=== PATIENT | female | born 1965 | race Caucasian/White ===

== ENCOUNTER 2020-05-25 18:31 | Observation (INO) ==
[2020-05-25 18:45] VITALS: BMI 24.0
--- NOTE | 2020-05-25 19:04 | CT ---
HISTORYright side weaknessSTUDYBRAIN W/O CONCOMPARISONNoneTECHNIQUEMultiple axial images of the head were performed from the skull base to the vertex using standard departmental protocol. Sagittal and coronal reformatted images were performed. Dose reduction techniques including Automated Exposure Control (AEC) and adjustment of mA and kV were utilized.FINDINGSNo evidence of acute territorial infarct. No acute intracranial hemorrhage. No evidence of intracranial mass or midline shift. No hydrocephalus. No abnormal intra or extra-axial fluid collections. Chronic small vessel ischemic changes.The calvaria is intact. The bilateral mastoid air cells and visualized paranasal sinuses are well pneumatized. The bilateral orbits are unremarkable.IMPRESSIONNo acute intracranial findings.Electronically signed by: RIN PATEL (May 25, 2020 19:03:02)
--- NOTE | 2020-05-25 19:08 | DR.DIZZY ---
HPI Time seen Time Seen by Provider: 05/25/20 18:59 PCP Primary Care Physician: DONNIE COPELAND Complaint Chief Complaint:: [facility] WAS DISPATCHED TO PATIENT DUE TO RIGHT SIDE WEAKNESS POSSIBLE STROKE. [facility] STATED THAT ON ARRIVAL PATIENT WAS UNST DANIELE WHILE STANDING. PATIENT STATES THAT SHE WAS AT WORK AND SHE STARTED FEELING FUNNY THEN SHE GOT DIZZY, TOP OF HEAD STARTED HURTING AND WENT NUMB THEM HER LIPS, HER TEETH, HER ARM AND HANDS ALL THE WAY DOWN TO HER FEET ON HER RIGHT SIDE WAS NUMB. PATIENT SHOWS NO SIGNS OF WEAKNESS DURING TRIAGE. PATIENT ALERT AND ORIENTED DURING TRIAGE STATES THAT SHE FEELS BETTER NOW AND THAT THE NUMBNESS IS BETTER. COVID-19 Coronavirus risk:travel/contact w/high risk person: No Has patient experienced Coronavirus symptoms: No Source History Provided: Patient and EMS Mode of Arrival Mode of Arrival: EMS Timing Onset of Chief Complaint: 05/25/20 Came on: Gradually Symptom Onset: Known Location of Weakness Weakness Location: None Context History of: None Stroke Symptoms: Numbness of limbs Associated signs and symptoms Associated Signs and Symptoms: Vertigo, Imbalance and Numb PMH PMH Past Medical History: Yes Past Medical History: Hypertension Past Surgical History: Yes Surgical History: Cholecystectomy and Hysterectomy Family History History of Family Medical Conditions: Yes Family Medical History: Coronary Artery Disease and Hypertension Social History Alcohol Use: None Do you use any recreational Drugs:: No Travel Risk Coronavirus risk:travel/contact w/high risk person: No Has patient experienced Coronavirus symptoms: No Infectious screening Have you traveled outside the country in the last 6 months?: No Isolation: Standard ROS Review of Systems Constitutional: Other (not feeling right) Eyes: No Symptoms Reported ENTM: No Symptoms Reported Respiratoy: No Symptoms Reported Cardiovascular: No Symptoms Reported Gastrointestinal/Abdominal: No Symptoms Reported Genitourinary: No Symptoms Reported Neurological: Numbness (right head and arm, right leg heavy) Musculoskeletal: No Symptoms Reported Integumentary: No Symptoms Reported Hematologic/Lymphatic: No Symptoms Reported Endocrine: No Symptoms Reported Psychiatric: Anxiety All Other Systems: Reviewed and Negative PE Vital Signs Vitals: Temperature 98.1 F Pulse Rate 72 Respiratory Rate 18 Blood Pressure [Right Arm] 137/87 Blood Pressure 194/86 O2 Sat by Pulse Oximetry 96 General Limitations: No Limitations General Appearance: Alert, In No Apparent Distress and Anxious Head Head Exam: Normal Inspection, Atraumatic and Normocephalic Eyes Eye exam: Normal Appearance, PERRL and EOMI Pupils: Regular, Round: Bilateral Anterior Chamber: Normal Inspection: Bilateral Posterior Chamber: Deferred: Bilateral ENT ENT Exam: Normal Exam, Normal Oropharynx and Normal External Ear Exam Neck Neck Exam: Normal Inspection, Full ROM and Trachea Midline Chest Chest Inspection: Normal Inspection Respiratory Respiratory Exam: Normal Lung Sounds Bilat Respiratory Exam: Bilateral: Clear to Auscultation Cardiovascular Cardiovascular Exam: Regular Rate Abdominal Exam Abdominal Exam: Normal Inspection Rectal Rectal Exam: Deferred Extremeties Extremities Exam: Normal Inspection and Full ROM Back Back Exam: Normal Inspection Neurologic Neurological Exam: Alert, Oriented X3, CN II-XII Intact and Normal Gait Patient Oriented To: Person and Place Speech: Fluid Speech Cranial Nerve Exam: EOM Function (II, III, IV, ): Normal, Facial Sensation (V): Normal, Facial Palsy (VII): Normal, Gag reflex (XI): Normal, Spinal Accessory Function (XI): Normal and Tongue Deviation: Normal Cerebellar Function: Finger to Nose: Normal and Heel to [place]: Normal Motor Strength - LUE: 5/5 Motor Strength - RUE: 4/5 Motor Strength - LLE: 5/5 Motor Strength - RLE: 5/5 Upper Motor Neuron Exam: Marcelo Neglect: Normal, Pronator Drift: Normal and Sensory Extinction: Normal Psychiatric Psychiatric Exam: Anxious Skin Skin Exam: Normal Color; negative Rash COURSE Treatment Treatment: NIH score on arrival 1-2 possible sensation problem. 2010: Case discussed with Neuro materials planner/production planner at [facility], recommended BP control, antiplatelet Drug and observation. Consultation Called: 20:15 Call Returned: 20:18 Consultation Comments: Case discussed with DR. Abdi, observation neuro checks ROR Labs Reviewed Result Diagrams: 05/25/20 19:02 05/25/20 19:02 Laboratory: WBC 9.2 X10^3/uL (3.6-10.0) 05/25/20 19:02 RBC 4.46 X10^6/uL (3.5-5.4) 05/25/20 19:02 Hgb 12.5 g/dL (12.0-16.0) 05/25/20 19:02 Hct 37.8 % (36.0-47.0) 05/25/20 19:02 MCV 84.8 fL (80.0-100.0) 05/25/20 19:02 MCH 28.0 pg (27.0-34.0) 05/25/20 19:02 MCHC 33.0 g/dL (33.0-35.0) 05/25/20 19:02 RDW 13.5 % (11.6-16.5) 05/25/20 19:02 Plt Count 243 X10^3/uL (150.0-450.0) 05/25/20 19:02 MPV 8.8 fL (7.4-11.0) 05/25/20 19:02 Neut % (Auto) 53.2 % (42.0-75.0) 05/25/20 19:02 Lymph % (Auto) 36.3 % (21.0-51.0) 05/25/20 19:02 [place] % (Auto) 6.4 % (0.0-13.0) 05/25/20 19:02 Eos % (Auto) 1.0 % (0.9-2.9) 05/25/20 19:02 Baso % (Auto) 3.1 % (0.2-1.0) H 05/25/20 19:02 Neut # (Auto) 4.9 x10^3/uL (2.2-4.8) H 05/25/20 19:02 Lymph # (Auto) 3.3 X10^3/uL (1.3-2.9) H 05/25/20 19:02 [place] # (Auto) 0.6 x10^3/uL (0.3-0.8) 05/25/20 19:02 Eos # (Auto) 0.1 x10^3/uL (0.0-0.2) 05/25/20 19:02 Baso # (Auto) 0.3 X10^3/uL (0.0-0.1) H 05/25/20 19:02 Absolute Nucleated RBC 0.1 /100WBC 05/25/20 19:02 PT 12.1 SECONDS (11.8-14.3) 05/25/20 19:02 INR Target Range - 05/25/20 19: INR 0.92 (0.8-1.3) 05/25/20 19:02 APTT 22.8 SECONDS (22.9-36.5) L 05/25/20 19:02 PTT Comment - 05/25/20 19:02 Fibrinogen 272 mg/dL (239-489) 05/25/20 19:02 Sodium 137 mmol/L (136-145) 05/25/20 19:02 Corrected Sodium TNP 05/25/20 19:02 Potassium 3.0 mmol/L (3.5-5.1) L* 05/25/20 19:02 Chloride 101 mmol/L (98-107) 05/25/20 19:02 Carbon Dioxide 26.1 mmol/L (21-32) 05/25/20 19:02 BUN 12 mg/dL (7-18) 05/25/20 19:02 Creatinine 0.73 mg/dL (0.55-1.02) 05/25/20 19:02 Est GFR (MDRD) Af Amer > 60 (>60) 05/25/20 19:02 Est GFR (MDRD) Non-Af > 60 (>60) 05/25/20 19:02 Glucose 89 mg/dL (65-99) 05/25/20 19:02 Calcium 9.4 mg/dL (8.5-10.1) 05/25/20 19:02 Corrected Calcium TNP 05/25/20 19:02 Total Bilirubin 0.30 mg/dL (0.2-1.0) 05/25/20 19:02 AST 19 Units/L (15-37) 05/25/20 19:02 ALT 22 Units/L (12-78) 05/25/20 19:02 Alkaline Phosphatase 41 Units/L (46-116) L 05/25/20 19:02 Total Protein 7.1 g/dL (6.4-8.2) 05/25/20 19:02 Albumin 3.6 g/dL (3.4-5.0) 05/25/20 19:02 Globulin 3.5 g/dL (2.5-4.5) 05/25/20 19:02 Albumin/Globulin Ratio 1.0 Ratio (1.1-2.1) L 05/25/20 19:02 EKG Rate: 78 [place]: Normal Rhythm: NSR Block: None Hypertrophy: None ST: Nonsp Opioid Opioid Risk Tool Age (Obed box if 16-45): Yes Total: 1 Total Score Risk Category: Low Risk Copyright: Michael BISHOP predicting aberrant behaviors Instructions Forms: Excuse From Work Precautions for COVID19 Patient Portal Social Distancing
[2020-05-25] MEDS ORDERED: PLAVIX PO ONE (19:13)
[2020-05-25 19:15] LABS: BASOPHILS # (AUTO) 0.3 X10^3/uL (0.0-0.1); BASOPHILS % (AUTO) 3.1 % (0.2-1.0); EOSINOPHILS # (AUTO) 0.1 x10^3/uL (0.0-0.2); HEMATOCRIT 37.8 % (36.0-47.0); HEMOGLOBIN 12.5 g/dL (12.0-16.0); LYMPHOCYTES # (AUTO) 3.3 X10^3/uL (1.3-2.9); LYMPHOCYTES % (AUTO) 36.3 % (21.0-51.0); MEAN CORPUSCULAR VOLUME 84.8 fL (80.0-100.0); MEAN PLATELET VOLUME 8.8 fL (7.4-11.0); MONOCYTES # (AUTO) 0.6 x10^3/uL (0.3-0.8); MONOCYTES % (AUTO) 6.4 % (0.0-13.0); NEUTROPHILS # (AUTO) 4.9 x10^3/uL (2.2-4.8); NEUTROPHILS % (AUTO) 53.2 % (42.0-75.0); PLATELET COUNT 243 X10^3/uL (150.0-450.0); RED BLOOD COUNT 4.46 X10^6/uL (3.5-5.4); RED CELL DISTRIBUTION WIDTH 13.5 % (11.6-16.5); WHITE BLOOD COUNT 9.2 X10^3/uL (3.6-10.0)
[2020-05-25 19:18] LABS: BLOOD UREA NITROGEN 12 mg/dL (7-18); CALCIUM 9.4 mg/dL (8.5-10.1); CARBON DIOXIDE 26.1 mmol/L (21-32); CHLORIDE 101 mmol/L (98-107); CREATININE 0.73 mg/dL (0.55-1.02); SODIUM 137 mmol/L (136-145); eGFR NON BLACK RACES > 60 (>60)
[2020-05-25] MEDS ORDERED: PLAVIX ONE (19:18)
[2020-05-25 19:23] LABS: ALANINE AMINOTRANSFERASE 22 Units/L (12-78); ALBUMIN 3.6 g/dL (3.4-5.0); ALKALINE PHOSPHATASE 41 Units/L (46-116); ASPARTATE AMINO TRANSFERASE 19 Units/L (15-37); TOTAL PROTEIN 7.1 g/dL (6.4-8.2)
[2020-05-25] MEDS ORDERED: POTASSIUM CHLORIDE LIQ 20 MEQ UDC PO ONE (19:24)
[2020-05-25] MEDS ORDERED: POTASSIUM CHLORIDE LIQ 20 MEQ UDC ONE (19:30)
[2020-05-25] MEDS ORDERED: CATAPRES TAB 0.1 MG PO ONE (19:31)
[2020-05-25] MEDS ORDERED: CATAPRES TAB 0.1 MG ONE (19:47)
[2020-05-26 07:12] LABS: BASOPHILS % (AUTO) 0.7 % (0.2-1.0); EOSINOPHILS # (AUTO) 0.1 x10^3/uL (0.0-0.2); EOSINOPHILS % (AUTO) 1.1 % (0.9-2.9); HEMATOCRIT 34.1 % (36.0-47.0); HEMOGLOBIN 11.4 g/dL (12.0-16.0); LYMPHOCYTES # (AUTO) 3.2 X10^3/uL (1.3-2.9); LYMPHOCYTES % (AUTO) 49.3 % (21.0-51.0); MEAN CORPUSCULAR HEMOGLOBIN 28.4 pg (27.0-34.0); MEAN CORPUSCULAR HGB CONC 33.5 g/dL (33.0-35.0); MEAN CORPUSCULAR VOLUME 84.7 fL (80.0-100.0); MEAN PLATELET VOLUME 8.9 fL (7.4-11.0); MONOCYTES # (AUTO) 0.5 x10^3/uL (0.3-0.8); MONOCYTES % (AUTO) 7.9 % (0.0-13.0); NEUTROPHILS # (AUTO) 2.7 x10^3/uL (2.2-4.8); PLATELET COUNT 251 X10^3/uL (150.0-450.0); RED BLOOD COUNT 4.03 X10^6/uL (3.5-5.4); RED CELL DISTRIBUTION WIDTH 13.6 % (11.6-16.5); WHITE BLOOD COUNT 6.5 X10^3/uL (3.6-10.0)
[2020-05-26 07:24] LABS: ALANINE AMINOTRANSFERASE 20 Units/L (12-78); ALBUMIN 3.1 g/dL (3.4-5.0); ALKALINE PHOSPHATASE 38 Units/L (46-116); ASPARTATE AMINO TRANSFERASE 14 Units/L (15-37); BLOOD UREA NITROGEN 18 mg/dL (7-18); CALCIUM 9.1 mg/dL (8.5-10.1); CARBON DIOXIDE 26.8 mmol/L (21-32); CHLORIDE 105 mmol/L (98-107); COR CA(FOR HYPOALB) 9.8 mg/dL (8.5-10.1); CREATININE 0.61 mg/dL (0.55-1.02); SODIUM 140 mmol/L (136-145); TOTAL PROTEIN 6.3 g/dL (6.4-8.2); eGFR NON BLACK RACES > 60 (>60)
[2020-05-26] MEDS ORDERED: ANTIVERT TAB 25 MG PO PRN (09:58)
--- NOTE | 2020-05-26 10:11 | DR.H&P ---
H&P - History & Physical for Day of: H&P Date: 05/25/20 - Chief Complaint Chief Complaint: DIZZINESS, LEFT SIDE WEAKNESS - History of Present Illness History of Present Illness: PT IS 54 WF ER ADMISSION WITH NEW ONSET DIZZINESS WITH ACUTE RIGHT SIDE FACIAL NUMBNESS AND WEAKNESS AND NUMBNESS TO RIGHT ARM. PT HAS PMH OF HTN. PT DENIES ANY CHEST PAIN OR SOB. PT DOES REPORT SHE HAS TAKE ZITHROMAX FOR SINUS INFECTION THIS PAST WEEK. SHE TESTED COVID NEGATIVE 2 WEEKS AGO, RAPID SWAB NEGATIVE IN ER.PT ALSO REPORTS SHE HAS HX OF HEADACHES, NO DIAGNOSIS OF MIGRAINE DISORDER. PT ADMITTED FOR TREATMENT OF ACUTE ILLNESS R/O TIA - Past Medical History Past Medical History: Hypertension - Past Surgical History Surgical History: Appendectomy, Cholecystectomy, Hysterectomy, Tonsillectomy - Family History Family Medical History: Diabetes Mellitus, Cancer, Coronary Artery Disease, Hypertension - Social History Does patient currently use any type of tobacco product: No Have you used tobacco products in the last 12 months: No Type of Tobacco Use: None Does any household member use tobacco: No Alcohol Use: None Drug Use: None - Medications Home Medications: No Known Drug Allergies Allergy (Verified 12/21/18 05:53) - Review of Systems Constitutional: Weakness Eyes: No Symptoms Reported ENT: No Symptoms Reported Respiratory: No Symptoms Reported Cardiovascular: No Symptoms Reported Gastrointestinal: No Symptoms Reported Musculoskeletal: No Symptoms Reported Skin: No Symptoms Reported Neurological: Weakness, Numbness (EPISODE OF NUMBNESS TO RIGHT SIDE OF AND RIGHT HAND RESOLVED AT THIS TIME) - Physical Exam Vital Signs: Temperature 98.1 F Pulse Rate [Left] 62 Pulse Rate 72 Respiratory Rate 18 Blood Pressure [Right Arm] 138/63 Blood Pressure 194/86 O2 Sat by Pulse Oximetry 99 Oriented: Normal Eyes: Normal Ear: Normal Nose: Normal Throat: Normal Respiratory: Clear Throughout Cardiovascular: Normal : Normal Auscultation: Bowel Sounds: Normal Palpation: Normal Tenderness: Normal Skin: Normal Musculoskeletal: Tender (MILD CERVICAL SPINE MUSCLE TENDERNESS, FULL ROM) Psychiatric: Normal Mood Description: Calm Speech Pattern: Clear - Assessment/Plan (1) Hypokalemia Status: Acute Plan: ADMIT, CT HEAD ON ADMISSION R/O CVA. BP CONTROL, VERIFY HOME MEDICATION. POTASSIUM REPLACEMENT, CARDIAC MONITORING (2) Facial paresthesia Status: Acute (3) Sinusitis Status: Acute (4) Hypertension Status: Acute - Allergies Allergies/Adverse Reactions: Allergies Allergy/AdvReac Type Severity Reaction Status Date / Time No Known Drug Allergies Allergy Verified 12/21/18 05:53
--- NOTE | 2020-05-26 10:17 | PCM.PROG ---
Progress Note - Progress Note for Day of Date of Exam: 05/26/20 - Subjective Subjective: PT IS 54 WF ER ADMISSION WITH POSSIBLE TIA. PT HAD CT HEAD IN ER WITHOUT ACUTE FINDINGS. SINCE ADMISSION PT'S RIGHT SIDE FACIAL AND RIGHT HAND PARESTHESIAS HAVE RESOLVED. PT WAS HYPOKALEMIC WITH POTASSIUM UP TO 3.7 THIS AM. PT CONTINUES WITH WAVES OF DIZZINESS WITH CHANGING POSITION. PT ALSO CO NECK PAIN TO RIGHT SIDE WITH HX OF DDD TO CSPINE. PT DENIES ANY GARCIA OR VISION CHANGES THIS AM. PT WAS TAKING ZITHROMAX FOR A "SINUS INFECTION" PRIOR TO ADMISSION. - Past Medical Family Social History Past Med/Fam/Surg Hx: No changes since H&P Allergies: Allergies No Known Drug Allergies Allergy (Verified 12/21/18 05:53) - Review of Systems ROS: No change since H&P - Vital Signs and I&O's Vital Signs: Temperature 98.1 F Pulse Rate [Left] 62 Pulse Rate 72 Respiratory Rate 18 Blood Pressure [Right Arm] 138/63 Blood Pressure 194/86 O2 Sat by Pulse Oximetry 99 Intake and Output: Intake & Output 05/23/20 05/24/20 05/25/20 05/26/20 11:59 11:59 11:59 11:59 Intake Total 500 / 500 Balance 500 / 500 - Physical Exam Oriented: Normal Eyes: Normal Ear: Normal Nose: Normal Throat: Normal Respiratory: Normal Cardiovascular: Normal : Normal Auscultation: Bowel Sounds: Normal Tenderness: Normal Skin: Normal Musculoskeletal: Tender (MILD CERVICAL SPINE MUSCLE TENDERNESS, FULL ROM) Psychiatric: Normal Mood Description: Calm Speech Pattern: Clear - Laboratory and Diagnostics Result Diagrams: 05/26/20 05:33 05/26/20 05:33 Labs: Laboratory WBC 6.5 X10^3/uL (3.6-10.0) 05/26/20 05:33 RBC 4.03 X10^6/uL (3.5-5.4) 05/26/20 05:33 Hgb 11.4 g/dL (12.0-16.0) L 05/26/20 05:33 Hct 34.1 % (36.0-47.0) L 05/26/20 05:33 MCV 84.7 fL (80.0-100.0) 05/26/20 05:33 MCH 28.4 pg (27.0-34.0) 05/26/20 05:33 MCHC 33.5 g/dL (33.0-35.0) 05/26/20 05:33 RDW 13.6 % (11.6-16.5) 05/26/20 05:33 Plt Count 251 X10^3/uL (150.0-450.0) 05/26/20 05:33 MPV 8.9 fL (7.4-11.0) 05/26/20 05:33 Neut % (Auto) 41.0 % (42.0-75.0) L 05/26/20 05:33 Lymph % (Auto) 49.3 % (21.0-51.0) 05/26/20 05:33 [place] % (Auto) 7.9 % (0.0-13.0) 05/26/20 05:33 Eos % (Auto) 1.1 % (0.9-2.9) 05/26/20 05:33 Baso % (Auto) 0.7 % (0.2-1.0) 05/26/20 05:33 Neut # (Auto) 2.7 x10^3/uL (2.2-4.8) 05/26/20 05:33 Lymph # (Auto) 3.2 X10^3/uL (1.3-2.9) H 05/26/20 05:33 [place] # (Auto) 0.5 x10^3/uL (0.3-0.8) 05/26/20 05:33 Eos # (Auto) 0.1 x10^3/uL (0.0-0.2) 05/26/20 05:33 Baso # (Auto) 0.0 X10^3/uL (0.0-0.1) 05/26/20 05:33 Absolute Nucleated RBC 0.0 /100WBC 05/26/20 05:33 PT 12.1 SECONDS (11.8-14.3) 05/25/20 19:02 INR Target Range - 05/25/20 19:02 INR 0.92 (0.8-1.3) 05/25/20 19:02 APTT 22.8 SECONDS (22.9-36.5) L 05/25/20 19:02 PTT Comment - 05/25/20 19:02 Fibrinogen 272 mg/dL (239-489) 05/25/20 19:02 Sodium 140 mmol/L (136-145) 05/26/20 05:33 Corrected Sodium TNP 05/26/20 05:33 Potassium 3.7 mmol/L (3.5-5.1) 05/26/20 05:33 Chloride 105 mmol/L (98-107) 05/26/20 05:33 Carbon Dioxide 26.8 mmol/L (21-32) 05/26/20 05:33 BUN 18 mg/dL (7-18) 05/26/20 05:33 Creatinine 0.61 mg/dL (0.55-1.02) 05/26/20 05:33 Est GFR (MDRD) Af Amer > 60 (>60) 05/26/20 05:33 Est GFR (MDRD) Non-Af > 60 (>60) 05/26/20 05:33 Glucose 93 mg/dL (65-99) 05/26/20 05:33 Calcium 9.1 mg/dL (8.5-10.1) 05/26/20 05:33 Corrected Calcium 9.8 mg/dL (8.5-10.1) 05/26/20 05:33 Total Bilirubin 0.20 mg/dL (0.2-1.0) 05/26/20 05:33 AST 14 Units/L (15-37) L 05/26/20 05:33 ALT 20 Units/L (12-78) 05/26/20 05:33 Alkaline Phosphatase 38 Units/L (46-116) L 05/26/20 05:33 Total Protein 6.3 g/dL (6.4-8.2) L 05/26/20 05:33 Albumin 3.1 g/dL (3.4-5.0) L 05/26/20 05:33 Globulin 3.2 g/dL (2.5-4.5) 05/26/20 05:33 Albumin/Globulin Ratio 1.0 Ratio (1.1-2.1) L 05/26/20 05:33 SARS-CoV-2 (PCR) Negative (NEGATIVE) 05/25/20 20:44 - Plan (1) Hypokalemia Status: Acute Plan: CT HEAD ON ADMISSION R/O CVA. BP CONTROL, VERIFY HOME MEDICATION, ORHTOSTATIC BP CHECKS. CT CSPINE, CXR, FASTING LIPID LEVEL. POTASSIUM REPLACEMENT, CARDIAC MONITORING (2) Facial paresthesia Status: Acute (3) Sinusitis Status: Acute (4) Hypertension Status: Acute
[2020-05-26 10:19] LABS: CHOL/HDL RATIO 3.2 (0.0-5.0)
[2020-05-26] MEDS ORDERED: NS 250 ML IV 250 ML IV ONE (10:42)
--- NOTE | 2020-05-26 11:07 | RAD ---
HISTORYRight side numbnessSTUDYCervical spine 8 viewsCOMPARISONMR cervical spine December 08, 2019FINDINGSThere is degenerative disc narrowing with osteophyte formation at C5-6. Degenerative deformity also involves the uncovertebral joints at this level. No fracture, bone destruction or subluxation is seen. Odontoid process and neural foramina intact.IMPRESSIONNo acute findings cervical spine. Degenerative disc disease, spondylosis and uncovertebral joint arthropathy at C5-6.Electronically signed by: EDI VARGAS (May 26, 2020 11:05:52)
--- NOTE | 2020-05-26 11:09 | RAD ---
HISTORYRight-sided numbnessSTUDYChest PA and lateral viewsCOMPARISONFebruary 2018, report onlyFINDINGSNormal heart size with clear lungs and pleural spaces. There is no mediastinal or hilar abnormality.IMPRESSIONNo significant chest abnormality identified.Electronically signed by: EDI VARGAS (May 26, 2020 11:08:22)
[2020-05-26] MEDS: MICRO K EXTEN CAP 10 MEQ PO SCH (11:22)
[2020-05-26] MEDS: MUCINEX DM PO SCH ×2 (11:23→20:18)
[2020-05-26] MEDS: ROCEPHIN VIAL 1 GRAM 1 G in NS 100 ML IV + SPIKE MINIBAG* 100 ML IV SCH (11:26)
[2020-05-27 06:58] LABS: BASOPHILS % (AUTO) 0.7 % (0.2-1.0); EOSINOPHILS # (AUTO) 0.1 x10^3/uL (0.0-0.2); HEMATOCRIT 34.9 % (36.0-47.0); HEMOGLOBIN 11.5 g/dL (12.0-16.0); LYMPHOCYTES # (AUTO) 3.5 X10^3/uL (1.3-2.9); LYMPHOCYTES % (AUTO) 51.5 % (21.0-51.0); MEAN CORPUSCULAR HEMOGLOBIN 28.2 pg (27.0-34.0); MEAN CORPUSCULAR HGB CONC 33.1 g/dL (33.0-35.0); MEAN CORPUSCULAR VOLUME 85.3 fL (80.0-100.0); MONOCYTES # (AUTO) 0.5 x10^3/uL (0.3-0.8); MONOCYTES % (AUTO) 7.8 % (0.0-13.0); NEUTROPHILS # (AUTO) 2.7 x10^3/uL (2.2-4.8); PLATELET COUNT 253 X10^3/uL (150.0-450.0); RED BLOOD COUNT 4.09 X10^6/uL (3.5-5.4); RED CELL DISTRIBUTION WIDTH 13.5 % (11.6-16.5); WHITE BLOOD COUNT 6.8 X10^3/uL (3.6-10.0)
[2020-05-27 07:14] LABS: ALANINE AMINOTRANSFERASE 20 Units/L (12-78); ALKALINE PHOSPHATASE 50 Units/L (46-116); ASPARTATE AMINO TRANSFERASE 17 Units/L (15-37); BLOOD UREA NITROGEN 16 mg/dL (7-18); CALCIUM 8.6 mg/dL (8.5-10.1); CARBON DIOXIDE 26.6 mmol/L (21-32); CHLORIDE 106 mmol/L (98-107); COR CA(FOR HYPOALB) 9.4 mg/dL (8.5-10.1); CREATININE 0.69 mg/dL (0.55-1.02); SODIUM 139 mmol/L (136-145); TOTAL PROTEIN 6.2 g/dL (6.4-8.2); eGFR NON BLACK RACES > 60 (>60)
[2020-05-27] MEDS ORDERED: NORVASC TAB 5 MG PO SCH (09:00)
[2020-05-27] MEDS: MICRO K EXTEN CAP 10 MEQ PO SCH (09:19)
[2020-05-27] MEDS: MUCINEX DM PO SCH (09:20)
[2020-05-27] MEDS: ROCEPHIN VIAL 1 GRAM 1 G in NS 100 ML IV + SPIKE MINIBAG* 100 ML IV SCH (09:20)
[2020-05-27 12:30] VITALS: BP 159/80
[2020-05-28] MEDS ORDERED: NORVASC TAB 5 MG PO SCH (09:00)
== END 2020-05-27 14:45 | disposition home or self-care (01) ==
LOC: ER 18:32 → MED/SURG 18:32
PROVIDERS: ADMIT Internal Medicine; ATTEND Internal Medicine
DX: Z11.59 Encounter for screening for other viral diseases; I10 Essential (primary) hypertension; R26.89 Other abnormalities of gait and mobility; G45.9 Transient cerebral ischemic attack, unspecified; E87.6 Hypokalemia; J01.80 Other acute sinusitis; R79.1 Abnormal coagulation profile; M50.322 Other cervical disc degeneration at C5-C6 level; R20.2 Paresthesia of skin; R42 Dizziness and giddiness
CPT/HCPCS: 36415; 70450; 71020; 71046; 72050; 80053; 80061; 85025; 85384; 85610; 85730; 87635; 93005; 96365; 96367; 99284; A4216; A4222; G0378; J0696; J7050